=== PATIENT | male | born 1965 | race Caucasian/White ===

== ENCOUNTER 2017-09-30 13:46 | Observation (INO) ==
[2017-09-30] MEDS ORDERED: Ringers Solution, Lactated 1,000 ML IVC SCH (14:15)
[2017-09-30] MEDS ORDERED: Clindamycin 600 MG/50 ML 600 MG/50 ML IV.SOLN IVPB ONE (15:32)
[2017-09-30] MEDS ORDERED: cloNIDine HCl 0.1 MG TABLET PO ONE (15:36)
[2017-09-30] MEDS ORDERED: *HR* Promethazine 25 MG/ML VIAL IVP PRN (15:36)
[2017-09-30] MEDS ORDERED: *HR* Labetalol 20 MG/4 ML SYRINGE IVP PRN (15:36)
[2017-09-30] MEDS ORDERED: Famotidine 20 MG/2 ML VIAL IVP ONE (15:36)
[2017-09-30] MEDS ORDERED: *HR* HYDROmorphone (PF) 1 MG/ML SYRINGE IVP PRN (15:36)
[2017-09-30] MEDS ORDERED: Gabapentin 300 MG CAPSULE PO STA (15:38)
[2017-09-30] MEDS ORDERED: Acetaminophen IV 1,000 MG/100 ML INFUS..BTL IVPB ONE (15:38)
--- NOTE | 2017-09-30 15:41 | Anesthesia Evaluation PreOp ---
Date of Encounter: 09/30/17 Time of Encounter: 15:39 - Past History Planned Operation: Robotic Lap Inguinal Hernia Repair Cardiac History: Hyperlipidemia (maintained on Lipitor) Pulmonary History: Snore Other Medical History: GERD (maintained on Protonix) Anesthesia History: No Prior Anesthetic Complications, Past Anesthesia (Forearm cyst excision, R-knee scope) Alcohol Use: occasionally Drug use: none Medications and Allergies Atorvastatin Calcium [Lipitor] 20 mg PO HS 09/30/17 [History] [place]-3/Dha/Epa/Fish Oil [Fish Oil 500 mg Softgel] 1 cap PO BID 09/30/17 [ History] Pantoprazole Sodium [Protonix] 40 mg PO DAILY 09/30/17 [History] 3 Allergy/AdvReac Type Severity Reaction Status Date / Time Penicillins Allergy See Verified 09/01/17 10:58 Comments - Meds/Allergy Pre-op Review Medications Reviewed: Yes Allergies Reviewed: Yes Beta Blockers on Current Med List: No Anesthesia Results - Labs Laboratory Tests 08/30/17 08/30/17 16:09 16:09 WBC 10.2 Hgb 14.3 Hct 41.6 Plt Count 203 Sodium 140 Potassium 3.9 Chloride 104 Carbon Dioxide 25 BUN 17 Creatinine 0.99 Est GFR (Non-Af Amer) > 60 Triglycerides 683 H Cholesterol 251 H Cholesterol/HDL Ratio 6.3 H Anesthesia Exam O2 Sat Height 1.7 m Weight 96.615 kg O2 Sat by Pulse Oximetry 97 O2 Sat by Pulse Oximetry 97 Vital Signs Temp Pulse Resp BP Pulse Ox 97.9 F 72 18 154/89 97 09/30/17 13:48 09/30/17 13:48 09/30/17 13:48 09/30/17 13:48 09/30/17 13:48 Height: 5'7" Weight: 213# BMI = 33 - HEENT Pupil (Motor): Pupils equal, EOMI Mallampati: III Teeth: Missing, Poor dentition Oral Opening: Greater than 3 - CREDIT COLLECTIONS MANAGER LOC: Oriented CREDIT COLLECTIONS MANAGER Motor: Normal RUE, Normal LUE, Normal RLE, Normal LLE, Normal Face CREDIT COLLECTIONS MANAGER Sensory: Normal: RUE - Cardiac Rhythm: Regular Murmur: None - Pulmonary Breath Sounds: bilateral Clear Respiratory Effort: Symmetrical Anesthesia Assess/Plan ASA Score: 2 Modified Niles Scale for Level of Consciousness: Cooperative, oriented, and tranquil Anesthetic Plan: General, Regional Monitoring Plan: Standard Monitors Recovery Plan: PACU Anes Supervising Prov Stmt: Pt seen/evaluated, R&B discussed, questions answered and consent obtained. Sammy Smith MD
[2017-09-30] MEDS ORDERED: *HR* FentaNYL (PF) 100 MCG/2 ML VIAL ONE ×2 (15:44→20:19)
[2017-09-30] MEDS ORDERED: *HR* Propofol 200 MG/20 ML VIAL IVP ONE (15:45)
[2017-09-30] MEDS ORDERED: *HR* Midazolam HCl 2 MG/2 ML VIAL ONE (15:45)
[2017-09-30] MEDS ORDERED: Lidocaine -MPF 2% 2 ML VIAL ONE (15:49)
[2017-09-30] MEDS ORDERED: *HR* Succinylcholine 200 MG/10 ML VIAL IVP ONE (16:46)
[2017-09-30] MEDS ORDERED: *HR* Rocuronium Bromide 50 MG/5 ML VIAL ONE ×2 (16:46→20:53)
--- NOTE | 2017-09-30 18:24 | History & Physical Report ---
Date of Encounter: 09/30/17 Time of Encounter: 18:23 24 Hour HP Update - Instructions Instructions: If the History and Physical is less than 30 days old and was completed prior to A.M. admission and or procedure and has NOT been updated on calendar day of procedure please complete this update prior to performing procedure. - Update Patient reports changes in Medical Condition: No Changes in examination, assessment, or condition: No Changes in Medication: No Preop tests/diagnostics Reviewed: Yes Surgery Remains Indicated: Yes Consent for Planned Operative Procedure(s) Verified: Yes - Pre-Operative Checklist Preoperative Checklist Indicated: Yes Prophylactic Antibiotic Ordered: Yes Home Medications Include Beta Malgorzata: No Beta Malgorzata Taken Today (Day of Surgery): No Beta Malgorzata Taken Yesterday (Day Prior to Surgery): No Is VTE Prophylaxis Indicated?: Yes - Attending Attestation patient seen and examined; no changes in patient health since last evaluation. okay to proceed with surgery
--- NOTE | 2017-09-30 19:26 | Discharge Summary ---
Outpatient Proc Discharge Plan - Plan Additional Instructions: Pain Narcotics are prescribed. take 1-2 tabs q6hrs as needed. If they are not needed, you can use tylenol and ibuprofen, alternating every 6 hrs for pain. If you choose the non-narcotic option, please take the tylenol and ibuprofen regimen around the clock, whether you feel pain or not. Please use stool softner if you take the narcotics. Do NOT drive while taking narcotics. Activity Please limit activity to no strenuous activity/exercise, no lifting more than 20lbs until seen at your 2 week appointment. Additional instructions will be given then. Diet As tolerated. I strongly recommend that you please start with a liquid diet and , after 6 hours, you can advance to a regular diet. Incisions Keep dry for 48 hours; You can apply ice to the incisions and any sore portion of your abdomen, 20 min on then 20 min off. Warnings If you begin to experience severe abdominal pain, poor food tolerance characterized by nausea and vomiitng, inability to have a bowel movement, severe diarrhea, redness of your incisions, purulent (pus-like) drainage, or opening of your incisions, or if you experience any fevers, chills, chest pain, shortness of breath, or any symptoms you feel warrants an evaluation, please call the office and await instructions or report to the closest emergency department or urgent care center or report to the emergency department here at [place]. Thank you for allowing me to take care of you! Prescriptions: Docusate Sodium [Colace] 100 mg PO Q6HR #20 capsule Oxycodone HCl 5 mg PO Q6HR PRN 7 Days #28 tablet PRN Reason: Pain Home Medications: Atorvastatin Calcium [Lipitor] 20 mg PO HS 09/30/17 [History] Docusate Sodium [Colace] 100 mg PO Q6HR #20 capsule 09/30/17 [Rx] [place]-3/Dha/Epa/Fish Oil [Fish Oil 500 mg Softgel] 1 cap PO BID 09/30/17 [ History] Oxycodone HCl 5 mg PO Q6HR PRN 7 Days #28 tablet 09/30/17 [Rx] Pantoprazole Sodium [Protonix] 40 mg PO DAILY 09/30/17 [History]
--- NOTE | 2017-09-30 19:28 | Operative Note ---
Date of procedure: 09/30/17 Pre-op diagnosis: umbilical hernia Post-op diagnosis: same Procedure: robotic umbilical hernia repair (EBONIE) Implants: progrip mesh Complications: none Local Anesthetics: 0.5% Sensorcaine HCL SubQ (cc) Surgeon: Akshat Gaston Was there an investigative assistant present: Yes It Infrastructure Specialist: Ynes Morales Estimated blood loss (cc): 20 Specimen: none Condition: stable Disposition: PACU Procedure in Detail: The patient was brought into the operating room suite. Positioned supine. Mechanical DVT prophylaxis was applied. The patient underwent smooth induction of anesthesia. The patient was prepped and draped in the usual fashion. Preoperative antibiotics were given. A timeout was held identifying correct patient, pathology, procedure, and physician. I started by creating 3 incision along the left lateral/LUQ region. The middle incision was 12mm to accomodate the robotic camera and port. Using the Visiport I entered the abdomen through the 12mm incision. I then inserted the camera port followed by the camera and created two 8mm incisions one handbreadth to the left and right of the 12mm incision. Under direct visualization, I inserted the ports for my working arms. I then docked the robot in the usual fashion, broke scrub, and went to the robotic console. I began by creating preperitoneal flaps to expose the defect. I then measured the defect, using the length of the working tips of my instruments as rulers ( 4cm x 5cm). I then took a 1-PDS stratafix suture and, in a running fashion, did reapproximate and close the defect. I then meaursured the length of the suture line ([id number])and added 2cm on all sides to fashion a mesh of appropriate length and width. Then I used the progrip mesh of 7cm x 4cm and inserted it into the abdomen through the working port. I then applied the mesh to cover the closure. I then closed the peritoneal flap using a V-loc suture in a running fashion. This concluded the robotic portion of the procedure. I then scrubbed and returned to the operative field, closed the fascia with the vircyl used at the beginning. I then close all incisions with interrupted 4-0 monocryl sutures and sealed them with dermabond. The patient tolerated the proceudre and was escorted to PACU in stable condition.
[2017-09-30] MEDS ORDERED: Ketorolac 30 MG/ML VIAL ONE (20:31)
[2017-09-30] MEDS ORDERED: Dexamethasone 4 MG/ML VIAL ONE (20:31)
[2017-09-30] MEDS ORDERED: Ondansetron 4 MG/2 ML VIAL ONE (20:31)
[2017-09-30] MEDS ORDERED: Neostigmine Methylsulfate 3 MG/3 ML SYRINGE ONE (21:54)
[2017-09-30] MEDS ORDERED: *HR* Morphine 10 MG/ML VIAL ONE (22:05)
--- NOTE | 2017-09-30 22:59 | Anesthesia Evaluation Post Op ---
Date of Encounter: 09/30/17 Time of Encounter: 23:00 - Vital Signs Vital Signs: Vital Signs/O2 Sat/Glucose, Most Current Temp Pulse Resp BP Pulse Ox 09/30/17 22:57 98.3 F 97 20 102/63 94 09/30/17 22:43 85 20 112/73 92 09/30/17 22:33 81 18 107/62 92 09/30/17 22:23 98.2 F 87 16 116/77 94 - Lungs Lungs: Clear Ascult./Percussion - Airway Airway: Non-obstructed - Cardiovascular Regular Rate - Mental Status Mental Status: Alert & Oriented, Answers Appropriately - Pain Pain Scale: 1 - Nausea Vomiting Nausea Vomiting: Not Present - Hydration Hydration: Ice chips - Discharge PostOp Status: Transfer Patient to floor
[2017-10-01 01:03] VITALS: BP 121/42
== END 2017-10-01 01:58 | disposition home or self-care (01) ==
LOC: 3ANU 13:46 → SAMDAY 13:46
PROVIDERS: ADMIT Surgery; ATTEND Surgery